=== PATIENT | female | born 1950 | race Caucasian/White ===

== ENCOUNTER 2020-08-20 14:45 | Emergency (ER) | payer MEDICARE, OTHER ==
[~2020-08-20] VITALS: Ht 160 cm; Wt 88.3 kg
--- NOTE | 2020-08-20 15:24 | NUR ---
BREAK RN: NARDA DELEON AT BEDSIDE. PT NEURO EXAM IS NML. PT C/O ONSET OF DIZZINESS WHEN BENDING OVER PT DESCRIBES IT "BUZZING FEELINGGGGGG LIKE I'M GOING TO PASSOUT" SYMPTOMS STARTED 08/19. ALL MONITORS PLACED, VSS NOTED, CALL LIGHT W/I REACH.
[2020-08-20 15:48] LABS: BASOPHILS % (AUTO) 1 % (0-1); EOSINOPHILS % (AUTO) 0 % (1-7); LYMPHOCYTES % (AUTO) 20 % (22-44); MEAN PLATELET VOLUME 8.2 fL (7.4-10.4); MONOCYTES % (AUTO) 7 % (2-9); NEUTROPHILS % (AUTO) 72 % (42-75); PLATELET COUNT 197 x10^3/uL (130-400); RED BLOOD COUNT 4.32 x10^6/uL (3.82-5.3); RED CELL DISTRIBUTION WIDTH 13.4 % (9.6-15.2)
[2020-08-20 15:50] LABS: MD NO
[2020-08-20 16:00] LABS: ALANINE AMINOTRANSFERASE 21 U/L (12-78); ALBUMIN 3.8 g/dL (3.4-5.0); ANION GAP 0 mmol/L (5-15); CALCIUM 9.4 mg/dL (8.5-10.1); CHLORIDE 99 mmol/L (98-107); CREATININE 0.53 mg/dL (0.55-1.02)
[2020-08-20 16:02] LABS: ALKALINE PHOSPHATASE 61 U/L (45-117); BILIRUBIN,TOTAL 0.4 mg/dL (0.2-1.0); TOTAL PROTEIN 7.1 g/dL (6.4-8.2)
[2020-08-20 16:08] LABS: MICROSCOPIC AUTO
--- NOTE | 2020-08-20 16:20 | NUR ---
ALL RESULTS BACK, PT FOR RECHECK.
--- NOTE | 2020-08-20 16:45 | NUR ---
ADD ON ORDER CTA, IV/SL PLACED. CALL LIGHT WITHIN REACH.
[2020-08-20] MEDS ORDERED: CEFDINIR 300 MG CAPSULE PO ONE (17:30)
--- NOTE | 2020-08-20 17:30 | NUR ---
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 CT CALLED AND READY, PT TRANSPORTED TO CT.
--- NOTE | 2020-08-20 17:56 | NUR ---
PT BACK FROM CT. AWAITING READING.
[2020-08-20] MEDS ORDERED: OMNIPAQUE 350 MG/ML, 75ML BOTTLE ONE (18:01)
[2020-08-20] MEDS ORDERED: CEFDINIR 300 MG CAPSULE ONE (18:02)
[2020-08-20 18:13] VITALS: BP 118/67
== END 2020-08-20 19:00 | disposition home or self-care (01) ==
LOC: ED 16:43
DX: I70.8 Atherosclerosis of other arteries (principal); N39.0 Urinary tract infection, site not specified; M54.2 Cervicalgia; R42 Dizziness and giddiness; I10 Essential (primary) hypertension; E11.9 Type 2 diabetes mellitus without complications; J44.9 Chronic obstructive pulmonary disease, unspecified
CPT/HCPCS: 36415; 70498; 80053; 81001; 85025; 87077; 87086; 93005; 99285; Q9967; 87186